=== PATIENT | female | born 2000 | race Caucasian/White ===

== ENCOUNTER 2020-08-30 16:37 | Inpatient (IN) | payer OTHER ==
[~2020-08-30] VITALS: Ht 160 cm; Wt 65.3 kg
[~2020-08-30 16:37] MED LIST: BENADRYL 25MG C25 MG PO; LODINE CAP 300300 MG PO; ZOFRAN ODT 4 MG4 MG PO
[2020-08-30 17:04] LABS: HEMOGLOBIN 12.4 gm/dl (12.3-15.3); RED BLOOD COUNT 3.93 M/UL (4.00-5.10); WHITE BLOOD COUNT 9.8 K/UL (4.5-11.0)
[2020-08-30] MEDS ORDERED: PRENATAL VITAM1 EAC3 PO (17:33)
[2020-08-31] MEDS ORDERED: IBUPROFEN600 MG PO (16:34)
[2020-08-31] MEDS ORDERED: HYDROCODON-ACE1 EAC4 PO (16:34)
[2020-08-31] MEDS ORDERED: DOCUSATE SODIU100 MG PO (16:34)
[2020-09-01 06:41] LABS: HEMOGLOBIN 9.7 gm/dl (12.3-15.3)
== END 2020-09-03 15:21 | disposition home or self-care (01) | DRG 787 ==
LOC: GENOP 16:37 → OB 16:48
PROVIDERS: Obstetrics & Gynecology; ADMIT Obstetrics & Gynecology
PROC: 4A1HXCZ Monitoring of Products of Conception, Cardiac Rate, External Approach (ICD-10-PCS; 2020-08-30)
PROC: 10D00Z1 Extraction of Products of Conception, Low, Open Approach (ICD-10-PCS; principal; 2020-09-03)
DX: O36.5930 Maternal care for other known or suspected poor fetal growth, third trimester, not applicable or unspecified (principal); O99.354 Diseases of the nervous system complicating childbirth; Z3A.37 37 weeks gestation of pregnancy; Z37.0 Single live birth; Z20.822 Contact with and (suspected) exposure to COVID-19; O76 Abnormality in fetal heart rate and rhythm complicating labor and delivery; O99.334 Smoking (tobacco) complicating childbirth; F17.210 Nicotine dependence, cigarettes, uncomplicated; Z87.440 Personal history of urinary (tract) infections; O62.2 Other uterine inertia; G43.109 Migraine with aura, not intractable, without status migrainosus
CPT/HCPCS: 36415; 81001; 82800; 85014; 85018; 85025; C9113; J0690; J1885; J2001; J2210; J2274; J2405; J2590; J2795; J7030; J7120; U0003

== ENCOUNTER 2020-10-26 00:07 | Emergency (ER) | payer OTHER ==
[~2020-10-26 00:07] MED LIST changes: +DOCUSATE SODIU100 MG PO; +HYDROCODON-ACE1 EAC4 PO; +IBUPROFEN600 MG PO; +PRENATAL VITAM1 EAC3 PO
[2020-10-26 00:41] LABS: HEMOGLOBIN 11.4 gm/dl (12.3-15.3); RED BLOOD COUNT 4.15 M/UL (4.00-5.10); WHITE BLOOD COUNT 6.2 K/UL (4.5-11.0)
[2020-10-26 01:22] LABS: BUN/CREATININE RATIO 6 (0-10)
[2020-11-15] MEDS ORDERED: AUGMENTIN 875-1 EACH PO (12:27)
== END 2020-10-26 02:37 | disposition home or self-care (01) ==
LOC: ER1 00:07
PROVIDERS: Emergency Medicine
DX: N93.9 Abnormal uterine and vaginal bleeding, unspecified (principal); R55 Syncope and collapse; F17.200 Nicotine dependence, unspecified, uncomplicated
CPT/HCPCS: 80053; 83880; 84703; 85025; 93005; 99284

== ENCOUNTER 2020-11-07 20:20 | Emergency (ER) | payer OTHER ==
[2020-11-08 02:03] LABS: HEMOGLOBIN 12.1 gm/dl (12.3-15.3); RED BLOOD COUNT 4.55 M/UL (4.00-5.10); WHITE BLOOD COUNT 5.9 K/UL (4.5-11.0)
[2020-11-08 02:26] LABS: BUN/CREATININE RATIO 14 (0-10)
[2020-11-08] MEDS ORDERED: CEFPODOXIME PR200 MG PO (02:57)
[2020-11-08] MEDS ORDERED: ZOFRAN ODT 4 MG4 MG PO (02:58)
[2020-11-15] MEDS ORDERED: AUGMENTIN 875-1 EACH PO (12:27)
== END 2020-11-08 03:45 | disposition home or self-care (01) ==
LOC: ER1 20:20
PROVIDERS: Emergency Medicine
DX: N39.0 Urinary tract infection, site not specified (principal); N10 Acute pyelonephritis; F17.210 Nicotine dependence, cigarettes, uncomplicated
CPT/HCPCS: 80053; 81001; 83690; 83735; 85025; 96372; 99284; J0696

== ENCOUNTER 2020-11-14 09:29 | Observation (INO) | payer OTHER ==
[~2020-11-14] VITALS: Ht 160 cm; Wt 54.4 kg
[~2020-11-14 09:29] MED LIST changes: +CEFPODOXIME PR200 MG PO
[2020-11-14 10:57] LABS: HEMOGLOBIN 13.9 gm/dl (12.3-15.3); RED BLOOD COUNT 5.19 M/UL (4.00-5.10); WHITE BLOOD COUNT 10.1 K/UL (4.5-11.0)
[2020-11-14 11:21] LABS: BUN/CREATININE RATIO 12 (0-10)
[2020-11-14] MEDS ORDERED: PROZAC10 MG PO (17:13)
[2020-11-15 07:04] LABS: RED BLOOD COUNT 4.17 M/UL (4.00-5.10); WHITE BLOOD COUNT 4.1 K/UL (4.5-11.0)
[2020-11-15 07:31] LABS: BUN/CREATININE RATIO 8 (0-10)
[2020-11-15] MEDS ORDERED: AUGMENTIN 875-1 EACH PO (12:27)
== END 2020-11-15 18:15 | disposition home or self-care (01) ==
LOC: ER1 09:29 → CDU 13:40 → MED SURG 4 16:14
PROVIDERS: Emergency Medicine; Physician Assistant; ADMIT Internal Medicine
DX: N39.0 Urinary tract infection, site not specified (principal); F17.200 Nicotine dependence, unspecified, uncomplicated; K52.9 Noninfective gastroenteritis and colitis, unspecified; Z20.822 Contact with and (suspected) exposure to COVID-19
CPT/HCPCS: 36415; 80048; 80053; 81001; 83605; 83690; 84703; 85025; 87040; 87086; 96374; 96375; 96376; 99285; G0378; J0696; J2270; J2405; J7030; U0002

== ENCOUNTER 2021-07-09 21:30 | Emergency (ER) | payer OTHER ==
[~2021-07-09 21:30] MED LIST changes: +AUGMENTIN 875-1 EACH PO; +PROZAC10 MG PO
[2021-07-09 23:05] LABS: HEMOGLOBIN 14.1 gm/dl (12.3-15.3); RED BLOOD COUNT 5.04 M/UL (4.00-5.10); WHITE BLOOD COUNT 7.9 K/UL (4.5-11.0)
[2021-07-09 23:17] LABS: BUN/CREATININE RATIO 13 (0-10)
[2021-07-10] MEDS ORDERED: OMNICEF 300 MG300 MG PO (00:30)
[2021-07-10] MEDS ORDERED: ZOFRAN 4 MG TAB4 MG PO (00:30)
== END 2021-07-10 00:46 | disposition home or self-care (01) ==
LOC: ER1 21:30
PROVIDERS: Physician Assistant Medical
DX: R10.9 Unspecified abdominal pain (principal); R53.1 Weakness; R42 Dizziness and giddiness; F17.210 Nicotine dependence, cigarettes, uncomplicated
CPT/HCPCS: 80053; 81001; 84702; 85025; 99284